=== PATIENT | female | born 1950 | race Caucasian/White ===

== ENCOUNTER 2017-06-06 10:27 | Outpatient (CLI) | payer OTHER | END 2017-06-06 18:04 | disposition home or self-care (01) | LOC: SMA 10:27 | PROVIDERS: ATTEND Family Medicine | DX: Z12.31 Encounter for screening mammogram for malignant neoplasm of breast (principal) | CPT/HCPCS: G0202 ==

== ENCOUNTER 2018-06-14 13:32 | Outpatient (CLI) | payer OTHER | END 2018-06-14 20:42 | disposition home or self-care (01) | LOC: SMA 13:32 | PROVIDERS: ATTEND Family Medicine | DX: Z12.31 Encounter for screening mammogram for malignant neoplasm of breast (principal) | CPT/HCPCS: 77067 ==

== ENCOUNTER 2019-10-28 14:54 | Outpatient (CLI) | payer OTHER | END 2019-10-28 19:28 | disposition home or self-care (01) | LOC: SMA 14:54 | PROVIDERS: ATTEND Family Medicine | DX: Z12.31 Encounter for screening mammogram for malignant neoplasm of breast (principal) | CPT/HCPCS: 77067 ==